=== PATIENT | female | born 2000 | race Caucasian/White ===

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

== ENCOUNTER → 2024-01-04 | Outpatient (CLI) | payer OTHER ==
[~2024-01-04] MED LIST changes: +Motrin,Rufen800 MG PO; +NECON 7-7-7-281 EACH PO
[2024-01-04 09:05] LABS: BASO % 0.9 % (0.0-1.0); BILIRUBIN Negative (Negative); BLOOD Negative (Negative); CLARITY Clear (Clear); COLOR Yellow (Yellow); EOS # 0.2 10*3/uL (0.0-0.4); EOS % 4.3 % (1.0-4.0); GLUCOSE Negative (Negative); HEMATOCRIT 41.3 % (37.0-47.0); KETONE Negative (Negative); LEUKO ESTERASE Negative (Negative); LYMPH # 1.7 10*3/uL (1.3-4.4); LYMPH % 39.5 % (27.0-41.0); MEAN CELL VOLUME 87.1 fl (81.0-99.0); MEAN CORPUSCULAR HGB 27.4 pg (27.0-31.0); MEAN CORPUSCULAR HGB CONC 31.5 g/dl (33.0-37.0); MEAN PLATELET VOLUME 10.7 fl (9.6-12.3); MONO # 0.3 10*3/uL (0.1-1.0); NEUT # 2.1 10*3/uL (2.3-7.9); NEUT % 48.3 % (47.0-73.0); NITRITE Negative (Negative); PLATELET COUNT AUTOMATED 284 10*3/uL (130-400); RED BLOOD COUNT 4.74 10*6/uL (4.10-5.10); RED CELL DISTRI WIDTH 12.6 % (0-14.5); RETICULOCYTE % 2.16 % (0.50-2.50); SPECIFIC GRAVITY 1.025 (1.001-1.030); WHITE BLOOD COUNT 4.4 10*3/uL (4.8-10.8)
[2024-01-04 09:29] LABS: BACTERIA 1+; EPITHELIAL CELLS 21-30; MUCOUS 1+
[2024-01-04 09:58] LABS: VITAMIN D, 25-HYDROXY 36.8 ng/mL (30-100)
[2024-01-04 09:59] LABS: ALKALINE PHOSPHATASE 42 U/L (46-116); BUN 12 mg/dl (9-23); CHLORIDE 106 mmol/L (98-107); CHOLESTEROL 159 mg/dL (<200); LDL CHOLESTEROL 73 mg/dL (9-159); POTASSIUM 3.9 mmol/L (3.4-5.1); SGPT/ALT 10 U/L (5-49); TOTAL PROTEIN 7.6 gm/dL (6.0-8.0); TRIGLYCERIDES 109 mg/dl (<150)
== END | disposition home or self-care (01) ==
LOC: LAB 08:47
PROVIDERS: ATTEND Family Medicine
DX: E78.5 Hyperlipidemia, unspecified (principal); R79.89 Other specified abnormal findings of blood chemistry; R53.83 Other fatigue; E10.9 Type 1 diabetes mellitus without complications; E55.9 Vitamin D deficiency, unspecified

== ENCOUNTER → 2024-07-04 | Outpatient (CLI) | payer OTHER | END | disposition home or self-care (01) | LOC: US 17:00 | PROVIDERS: ATTEND Nurse Practitioner Women's Health | DX: R10.2 Pelvic and perineal pain (principal) ==

== ENCOUNTER 2024-09-04 17:49 | Emergency (ER) | payer OTHER ==
[~2024-09-04] VITALS: Ht 160 cm; Wt 57.6 kg
[2024-09-04 21:07] LABS: BASO % 0.5 % (0.0-1.0); EOS # 0.2 10*3/uL (0.0-0.4); EOS % 2.7 % (1.0-4.0); HEMATOCRIT 42.1 % (37.0-47.0); MEAN CELL VOLUME 85.4 fl (81.0-99.0); MEAN CORPUSCULAR HGB CONC 32.8 g/dl (33.0-37.0); MEAN PLATELET VOLUME 10.9 fl (9.6-12.3); MONO # 0.5 10*3/uL (0.1-1.0); MONO % 6.4 % (3.0-9.0); NEUT # 4.8 10*3/uL (2.3-7.9); NEUT % 56.9 % (47.0-73.0); PLATELET COUNT AUTOMATED 269 10*3/uL (130-400); RED BLOOD COUNT 4.93 10*6/uL (4.10-5.10); RED CELL DISTRI WIDTH 12.4 % (0-14.5); WHITE BLOOD COUNT 8.5 10*3/uL (4.8-10.8)
[2024-09-04 21:23] LABS: ACT PARTIAL THROMBO TIME 28.2 SECONDS (20.0-32.1)
[2024-09-04 21:26] LABS: BUN 21 mg/dl (9-23); CHLORIDE 106 mmol/L (98-107); POTASSIUM 3.8 mmol/L (3.4-5.1)
[2024-09-04 21:40] LABS: B-hCG (QUALITATIVE) NEGATIVE (NEGATIVE)
[2024-09-04] MEDS ORDERED: Enoxaparin Sodium 60 MG/0.6 ML SYR SC ONE (21:55)
== END 2024-09-04 22:19 | disposition home or self-care (01) ==
LOC: ED 17:49
PROVIDERS: Physician Assistant Medical
DX: R60.0 Localized edema (principal); R10.2 Pelvic and perineal pain

== ENCOUNTER → 2024-09-05 | Outpatient (CLI) | payer OTHER | END | disposition home or self-care (01) | LOC: US 07:25 | PROVIDERS: ATTEND Physician Assistant Medical | DX: R60.0 Localized edema (principal); L53.9 Erythematous condition, unspecified ==